=== PATIENT | male | born 1995 | race Caucasian/White ===

== ENCOUNTER 2018-03-16 08:53 | Emergency (ER) | payer OTHER ==
[2018-03-16] MEDS: predniSONE 20 MG TAB PO (09:34)
[2018-03-16] MEDS: CLINDAMYCIN 150 MG CAP PO (09:34)
[2018-03-16] MEDS: diphenhydrAMINE 50 MG CAP PO (09:35)
[2018-03-16 09:48] LABS: BASO % 0.5 % (0.0-1.0); EOS # 0.5 10^3/uL (0.0-0.50); EOS % 6.7 % (0.0-3.0); HEMATOCRIT 45.4 % (42.0-52.0); HEMOGLOBIN 15.6 g/dl (13.5-17.5); IMMATURE GRANULOCYTE % 0.3 % (0-3.0); LYMPH # 1.3 10^3/uL (1.5-6.5); LYMPH % 16.5 % (24.0-44.0); MEAN CORPUSCULAR HEMOGLOBIN 31.4 pg (27.0-33.0); MEAN CORPUSCULAR HGB CONC 34.4 g/dl (32.0-36.5); MEAN CORPUSCULAR VOLUME 91.3 fl (80.0-96.0); MONO # 0.6 10^3/uL (0.0-0.8); MONO % 7.6 % (0.0-5.0); NEUTROPHILS # 5.4 10^3/uL (1.8-7.7); NEUTROPHILS % 68.4 % (36.0-66.0); PLATELET COUNT, AUTOMATED 199 10^3/uL (150-450); RED BLOOD COUNT 4.97 10^6/uL (4.30-6.10); RED CELL DISTRIBUTION WIDTH 12.4 % (11.5-14.5); WHITE BLOOD COUNT 7.9 10^3/uL (4.0-10.0)
[2018-03-16 10:13] LABS: ERYTHROCYTE SEDIMENTATION RATE 4 mm/hr (0-15)
[2018-03-16 10:17] LABS: ANION GAP 6 MEQ/L (8-16); BLOOD UREA NITROGEN 13 MG/DL (7-18); C REACTIVE PROTEIN QUANTITATIV < 0.30 MG/DL (0.00-0.30); CALCIUM LEVEL 9.2 MG/DL (8.5-10.1); CARBON DIOXIDE LEVEL 30 MEQ/L (21-32); CHLORIDE LEVEL 104 MEQ/L (98-107); GLUCOSE, FASTING 99 MG/DL (70-100); POTASSIUM SERUM 4.8 MEQ/L (3.5-5.1); SODIUM LEVEL 140 MEQ/L (136-145)
== END 2018-03-16 10:47 | disposition home or self-care (01) ==
LOC: M ED 08:53
DX: L03.115 Cellulitis of right lower limb (principal); L50.9 Urticaria, unspecified; F17.210 Nicotine dependence, cigarettes, uncomplicated
CPT/HCPCS: 80048

== ENCOUNTER 2019-04-21 10:49 | Emergency (ER) | payer OTHER ==
[~2019-04-21] VITALS: Ht 175.3 cm; Wt 74.9 kg
[~2019-04-21 10:49] MED LIST: CLEO300C2 PO; PRED20TA PO; TRIA1CR80 TOP
[2019-04-21] MEDS ORDERED: GI COCKTAIL 50ML BTL(HYOSCYAMINE/MAALOX/LIDOCAINE VISCOUS)(1:3:1) PO ONE (11:15)
[2019-04-21] MEDS ORDERED: NS 1,000 ML IV ONE (11:15)
[2019-04-21] MEDS ORDERED: ONDANSETRON 4MG/2ML VIAL (J2405) IV ONE (11:15)
[2019-04-21 11:28] LABS: BASO % 0.5 % (0.0-1.0); EOS # 0.2 10^3/uL (0.0-0.50); EOS % 3.7 % (0.0-3.0); HEMATOCRIT 46.3 % (42.0-52.0); HEMOGLOBIN 15.8 g/dl (13.5-17.5); LYMPH # 1.3 10^3/uL (1.5-6.5); LYMPH % 23.1 % (24.0-44.0); MEAN CORPUSCULAR HEMOGLOBIN 32.2 pg (27.0-33.0); MEAN CORPUSCULAR HGB CONC 34.1 g/dl (32.0-36.5); MEAN CORPUSCULAR VOLUME 94.5 fl (80.0-96.0); MONO # 0.5 10^3/uL (0.0-0.8); MONO % 8.5 % (0.0-5.0); NEUTROPHILS # 3.6 10^3/uL (1.8-7.7); PLATELET COUNT, AUTOMATED 186 10^3/uL (150-450); WHITE BLOOD COUNT 5.7 10^3/uL (4.0-10.0)
[2019-04-21 12:11] LABS: ALBUMIN 4.2 GM/DL (3.2-5.2); ALT/SGPT 27 U/L (12-78); BILIRUBIN,DIRECT 0.2 MG/DL (0.0-0.2); BILIRUBIN,TOTAL 0.5 MG/DL (0.2-1.0); BLOOD UREA NITROGEN 12 MG/DL (7-18); CALCIUM LEVEL 8.8 MG/DL (8.5-10.1); CARBON DIOXIDE LEVEL 27 MEQ/L (21-32); CHLORIDE LEVEL 107 MEQ/L (98-107); CREATININE FOR GFR 0.93 MG/DL (0.70-1.30); GLOMERULAR FILTRATION RATE > 60.0 (>60); GLUCOSE, FASTING 92 MG/DL (70-100); LIPASE 78 U/L (73-393); POTASSIUM SERUM 3.9 MEQ/L (3.5-5.1); SODIUM LEVEL 140 MEQ/L (136-145); TOTAL PROTEIN 7.6 GM/DL (6.4-8.2)
[2019-04-21] MEDS ORDERED: ISOVUE-370 76% 100ML VIAL (Q9967) As Ordered ONE (12:14)
--- NOTE | 2019-04-21 13:18 | REP ---
REASON: Left lower quadrant pain and vomiting. COMPARISON: None. CONTRAST: 100 mL Isovue 370. The lung bases are clear. The liver, gallbladder, spleen, pancreas, adrenal glands, and kidneys are within normal limits. The abdominal aorta and paraaortic regions are within normal limits. The bowel loops and their mesenteries are within normal limits. The appendix is well visualized and is within normal limits. There is no free fluid or free air. There is no intra-abdominal mass or adenopathy. CT PELVIS: There is no mass or adenopathy. There is no free fluid or free air. The bowel loops and their mesenteries are within normal limits. Bone window technique throughout the exam shows the osseous structures to be within normal limits. IMPRESSION: CT findings are within normal limits. Electronically Signed by Vicente Can DO 04/21/2019 01:18 P
[2019-04-21] MEDS ORDERED: ZOFR4TAB16 PO (13:25)
[2019-04-21 13:31] VITALS: BP 120/64
== END 2019-04-21 13:39 | disposition home or self-care (01) ==
LOC: M ED 10:49
DX: R11.10 Vomiting, unspecified (principal); R19.7 Diarrhea, unspecified; J30.81 Allergic rhinitis due to animal (cat) (dog) hair and dander; Z91.018 Allergy to other foods; F17.210 Nicotine dependence, cigarettes, uncomplicated
CPT/HCPCS: 36415; 74177; 80048; 80076; 83690; 85025; 96361; 96374; 99284; J2405; Q9967

== ENCOUNTER 2019-06-02 00:16 | Emergency (ER) | payer OTHER ==
[~2019-06-02] VITALS: Ht 175.3 cm; Wt 72.7 kg
[~2019-06-02 00:16] MED LIST changes: +ZOFR4TAB16 PO
[2019-06-02] MEDS ORDERED: LIDOCAINE 2% MDV 20 ML VIAL SC ONE (00:45)
[2019-06-02] MEDS ORDERED: BACT800T5 PO (01:27)
[2019-06-02] MEDS ORDERED: BACTRIM 160MG/800MG DS TAB PO ONE (01:30)
[2019-06-02 01:34] VITALS: BP 109/68
== END 2019-06-02 01:50 | disposition home or self-care (01) ==
LOC: M ED 00:16
DX: S61.213A Laceration without foreign body of left middle finger without damage to nail, initial encounter (principal); W26.0XXA Contact with knife, initial encounter; Y92.018 Other place in single-family (private) house as the place of occurrence of the external cause; Z91.018 Allergy to other foods; J30.81 Allergic rhinitis due to animal (cat) (dog) hair and dander; F17.210 Nicotine dependence, cigarettes, uncomplicated

== ENCOUNTER 2019-06-03 23:07 | Emergency (ER) | payer OTHER ==
[~2019-06-03] VITALS: Ht 175.3 cm; Wt 72.7 kg
[2019-06-03 23:07] VITALS: BP 124/71
[~2019-06-03 23:07] MED LIST changes: +BACT800T5 PO
== END 2019-06-04 00:36 | disposition left against medical advice (07) ==
LOC: M ED 23:07
DX: Z53.21 Procedure and treatment not carried out due to patient leaving prior to being seen by health care provider (principal)

== ENCOUNTER → 2020-10-16 | Outpatient (CLI) | payer SELFPAY | LOC: M LABSMTC 12:32 | PROVIDERS: ATTEND Pediatrics | DX: Z20.822 Contact with and (suspected) exposure to COVID-19 (principal) ==